=== PATIENT | female | born 1970 | race Caucasian/White ===

== ENCOUNTER → 2022-11-14 | Outpatient (CLI) | payer BC ==
--- NOTE | 2022-11-14 07:58 | MM ---
Reason for Exam: Clinical finding. Last mammogram was performed 8 year(s) and 1 month(s) ago. Indicated Problems: Lump or thickening of the left side for 1 Month(s). Patient History: Menarche at age 14. First Full-Term at age 19. 10/27/2014, Benign Core Biopsy on the left side. Maternal aunt had breast cancer. Risk Values: Yun 5 year model risk: 0.8%. NCI Lifetime model risk: 6.8%. Prior Study Comparison: Screening Mammogram, [facility]. 10/05/2014 Bilateral Diagnostic Mammogram, [facility]. 10/05/2014 Bilateral Diagnostic Ultrasound, [facility]. 10/27/2014 Left Diagnostic Mammogram, [facility]. Tissue Density: The breast tissue is extremely dense which could obscure a lesion on mammography. Findings: Analyzed By CAD. No discrete abnormality at the site of clinical concern. Scattered benign calcifications noted. Overall Assessment: Incomplete: need additional imaging evaluation, BI-RAD 0 Management: Diagnostic Breast Ultrasound of the left breast. . Results were given to the patient verbally at the time of exam. Patient should continue monthly self-breast exams. A clinical breast exam by your physician is recommended on an annual basis. This exam should not preclude additional follow-up of suspicious palpable abnormalities. Note on Yun scores and lifetime risk: 1. A Yun score greater than 3% is considered moderate risk. If this is the case, consider specialist referral to assess eligibility for a risk reducing agent. 2. If overall lifetime risk for the development of breast cancer is 20% or higher, the patient may qualify for future screening with alternating mammogram and breast MRI. Electronically signed and approved by: Reji Deng M.D. Radiologis
--- NOTE | 2022-11-14 08:41 | USB ---
Reason for Exam: Clinical finding. Patient History: Menarche at age 14. First Full-Term at age 19. 10/27/2014, Benign Core Biopsy on the left side. Maternal aunt had breast cancer. Risk Values: Yun 5 year model risk: 0.8%. NCI Lifetime model risk: 6.8%. Technique: Method: Targeted. Prior Study Comparison: Screening Mammogram, [facility]. 10/05/2014 Bilateral Diagnostic Mammogram, [facility]. 10/27/2014 Left Diagnostic Mammogram, [facility]. Findings: The area of palpable concern of the left breast, the axilla of the left breast and the retroareolar of the left breast were scanned. No solid or cystic masses are identified.. Manage palpable abnormality clinically. Overall Assessment: Negative, BI-RAD 1 Management: Screening Mammogram of both breasts in 1 year. A clinical breast exam by your physician is recommended on an annual basis and results should be correlated with mammographic findings. This exam should not preclude additional follow-up of suspicious palpable abnormalities. Results were given to the patient verbally at the time of exam. Electronically signed and approved by: Reji Deng M.D. Radiologis
--- NOTE | 2022-11-14 09:48 | BD ---
EXAMINATION TYPE: Axial Bone Density DATE OF EXAM: 11/14/2022 CLINICAL HISTORY: 52 years old Female. ICD-10 CODE: N951 POST CYRUS SYMPTOMS Height: 66 Weight: 136 FRAX RISK QUESTIONS: Family History (Parent hip fracture): no History of Fracture in Adulthood: no Secondary Osteoporosis: no Rheumatoid Arthritis: no Current Tobacco Use: yes RISK FACTORS HISTORY OF: Surgery to Spine: yes, stimulater in When: 2020 Family History of Osteoporosis: no Active: yes Diet low in dairy products/other sources of calcium: yes Postmenopausal woman: yes Lost more than 2 inches in height since high school: no Frequent falls: no MEDICATIONS: Additional Medications: yes anxiety, pain meds EXAM MEASUREMENTS: Bone mineral densitometry was performed using the [employer] System. Bone mineral density as measured about the Lumbar spine is: ----- L1-L4(G/cm2): 1.033 T Score Values are as follows: ----- L1: -1.9 ----- L2: -0.6 ----- L3: -1.4 ----- L4: -1.3 ----- L1-L4: -1.2 Z Score Values are as follows: ----- L1: -1.2 ----- L2: 0.1 ----- L3: -0.7 ----- L4: -0.5 ----- L1-L4: -0.5 Bone mineral density baseline Bone mineral density about the R hip (g/cm2): 0.783 Bone mineral density about the L hip (g/cm2): 0.722 T Score values are as follows: -----R Neck: -1.7 -----L Neck: -2.4 -----R Total: -1.8 -----L Total: -2.3 Z Score values are as follows: -----R Neck: -0.8 -----L Neck: -1.5 -----R Total: -1.2 -----L Total: -1.6 Bone mineral density baseline FRAX%s: The graph provided illustrates a 8.0% chance for a major osteoporotic fx and a 2.5% chance fo r the hips probability for fx in 10 years time. IMPRESSION: Osteopenia (T Score between -2.5 and -1). There is slightly increased risk of fracture and the patient may be considered for treatment. Re-Screen 2-5 years. NOTE: T-SCORE=SD OF THE YOUNG ADULT MEAN.
== END | disposition home or self-care (01) ==
LOC: RADMAMWWP 07:28
PROVIDERS: ATTEND Obstetrics & Gynecology
DX: N63.0 Unspecified lump in unspecified breast (principal); M85.89 Other specified disorders of bone density and structure, multiple sites; Z78.0 Asymptomatic menopausal state; Z80.3 Family history of malignant neoplasm of breast
CPT/HCPCS: 77062; 77066; 77080

== ENCOUNTER 2023-09-19 16:00 | Inpatient (IN) | payer BC ==
--- NOTE | 2023-09-19 16:12 | ED ---
Abdominal Pain HPI - General Source: patient, RN notes reviewed Mode of arrival: wheelchair Limitations: no limitations <Cheryle Chau - Last Filed: 09/19/23 16:11> <Leland Tolentino - Last Filed: 09/19/23 23:40> <Alida Kim - Last Filed: 09/20/23 00:51> - General Chief Complaint: Abdominal Pain Stated Complaint: abd pain Time Seen by Provider: 09/19/23 16:11 - History of Present Illness Initial Comments: Quick note: 53-year-old female presented to the ER with a chief complaint of left-sided body pain. Patient has a history of kidney stones. She reports pain started around 1 AM. She is endorsing nausea and vomiting. (Cheryle Chau) 53-year-old female with history of kidney stones and cholecystectomy presenting to the ER with left flank pain x 1 day. Reports pain began suddenly at 1 AM this morning and is sharp and radiates from the left flank around to the left sided abdomen. Patient has been vomiting due to nausea. Patient reports that she had a left-sided kidney stone that was 4 mm and reports it "got stuck" and they had to break it up. Previous scans revealed she had another kidney stone on left side. Admits subjective fever and chills, denies dysuria, urinary frequency, urinary urgency. (Alida Kim) - Related Data Home Medications Medication Instructions Recorded Confirmed HYDROcodone/APAP 10-325MG [[place] 1 tab PO Q4HR PRN 05/22/15 05/22/15 10-325] Allergies Allergy/AdvReac Type Severity Reaction Status Date / Time lansoprazole [From Prevacid] Allergy Rash/Hives Verified 09/19/23 16:05 povidone-iodine Allergy Rash/Hives Verified 09/19/23 16:05 [From Betadine] soap [From Betadine] Allergy Rash/Hives Verified 09/19/23 16:05 Sulfa (Sulfonamide Allergy Rash/Hives Verified 09/19/23 16:05 Antibiotics) Review of Systems ROS Other: All systems not noted in ROS Statement are negative. <Cheryle Chau - Last Filed: 09/19/23 16:11> ROS Other: All systems not noted in ROS Statement are negative. <Leland Tolentino - Last Filed: 09/19/23 23:40> ROS Other: All systems not noted in ROS Statement are negative. <KimAlida - Last Filed: 09/20/23 00:51> ROS Statement: Those systems with pertinent positive or pertinent negative responses have been documented in the HPI. Past Medical History Additional Past Medical History / Comment(s): BACK PAIN History of Any Multi-Drug Resistant Organisms: None Reported Past Surgical History: Back Surgery, Tubal Ligation Additional Past Surgical History / Comment(s): LEFT FOOT SURGERY Past Psychological History: No Psychological Hx Reported Past Alcohol Use History: None Reported Past Drug Use History: None Reported <Cheryle Chau - Last Filed: 09/19/23 16:11> General Exam Limitations: no limitations <Cheryle Chau - Last Filed: 09/19/23 16:11> General appearance: alert, other (Patient doubled over in pain during examination) Head exam: Present: atraumatic, normocephalic, normal inspection Neck exam: Present: normal inspection. Absent: tenderness, meningismus, lymphadenopathy Respiratory exam: Present: normal lung sounds bilaterally. Absent: respiratory distress, wheezes, rales, rhonchi, stridor Cardiovascular Exam: Present: regular rate, normal rhythm, normal heart sounds. Absent: systolic murmur, diastolic murmur, rubs, gallop, clicks GI/Abdominal exam: Present: soft, tenderness (Moderate left lower quadrant tenderness), normal bowel sounds. Absent: distended, guarding, rebound, rigid Extremities exam: Present: normal inspection, full ROM, normal capillary refill. Absent: tenderness, pedal edema, joint swelling, calf tenderness Back exam: Present: normal inspection, CVA tenderness (L). Absent: CVA tenderness (R) Neurological exam: Present: alert, oriented X3, CN II-XII intact Psychiatric exam: Present: normal affect, anxious <Alida Kim - Last Filed: 09/20/23 00:51> - General Exam Comments Initial Comments: Visual Physical Exam Vital signs reviewed General: Well-appearing, nontoxic, no acute distress. Head: Normocephalic, atraumatic Eyes: PERRLA, EOMI ENT: Airway patent Chest: Nonlabored breathing Skin: No visual rash, normal skin tone Neuro: Alert and oriented 3 Musculoskeletal: No gross abnormalities (Cheryle Chau) Course Vital Signs 09/19/23 16:02 Temperature 98.0 F Pulse Rate 108 H Respiratory 16 Rate Blood Pressure 95/67 O2 Sat by Pulse 100 Oximetry Medical Decision Making <Cheryle Chau - Last Filed: 09/19/23 16:11> - Lab Data Result diagrams: 09/19/23 20:30 09/19/23 16:28 <Leland Tolentino - Last Filed: 09/19/23 23:40> - Lab Data Result diagrams: 09/19/23 20:30 09/19/23 16:28 <Alida Kim - Last Filed: 09/20/23 00:51> - Medical Decision Making I performed the quick note portion of this chart. Electronically signed by Cheryle Chau PA-C (Cheryle Chau) Was pt. sent in by a medical professional or institution (ROEL Graham, FORGE UTILITY WORKER, urgent care, hospital, or correction...) When possible be specific @ -No Did you speak to anyone other than the patient for history (EMS, parent, family, police, friend...)? What history was obtained from this source @ -No Did you review nursing and triage notes (agree or disagree)? Why? @ -I reviewed and agree with nursing and triage notes Were old charts reviewed (outside hosp., previous admission, EMS record, old EKG, old radiological studies, urgent care reports/EKG's, correction records)? Report findings @ -No old charts were reviewed Differential Diagnosis (chest pain, altered mental status, abdominal pain women, abdominal pain men, vaginal bleeding, weakness, fever, dyspnea, syncope, headache, dizziness, GI bleed, back pain, seizure, CVA, palpatations, mental health, musculoskeletal)? @ -Differential Abdominal Pain Women: Appendicitis, Cholecystitis, diverticulosis, ischemic bowel, pancreatitis, hepatitis, UTI, gastroenteritis, AAA, incarcerated hernia, bowel obstruction, constipation, inflammatory bowel, hepatitis, peptic ulcer disease, splenic infarction, perforated viscus, vulvitis, ovarian torsion, PID, kidney stone, placenta abruption, this is not meant to be an all-inclusive list EKG interpreted by me (3pts min.). @ -None X-rays interpreted by me (1pt min.). @ -None done CT interpreted by me (1pt min.). @ -None done U/S interpreted by me (1pt. min.). @ -None done What testing was considered but not performed or refused? (CT, X-rays, U/S, labs)? Why? @ -None What meds were considered but not given or refused? Why? @ -None Did you discuss the management of the patient with other professionals (professionals i.e. DrSneha, PA, FORGE UTILITY WORKER, lab, RT, psych nurse, health and social care teacher, cellar worker, teacher, disabilities services officer, case making machine operator)? Give summary @ -Case discussed with Dr. Garza who decides to take patient to the OR tonight. Case also discussed with Dr. Hinojosa who agrees to accept admission as blood pressure has stabilized to 114/70. Dr. Lopez from infectious disease also consulted. Was smoking cessation discussed for >3mins.? @ -No Was critical care preformed (if so, how long)? @ -Yes, 45 minutes Were there social determinants of health that impacted care today? How? (Homelessness, low income, unemployed, alcoholism, drug addiction, transportation, low edu. Level, literacy, decrease access to med. care, prison, rehab)? @ -No Was there de-escalation of care discussed even if they declined (Discuss DNR or withdrawal of care, Hospice)? DNR status @ -No What co-morbidities impacted this encounter? (DM, HTN, Smoking, COPD, CAD, Cancer, CVA, ARF, Chemo, Hep., AIDS, mental health diagnosis, sleep apnea, morbid obesity)? @ -None Was patient admitted / discharged? Hospital course, mention meds given and route, prescriptions, significant lab abnormalities, going to OR and other pertinent info. @ -Patient was admitted. Patient was seen and evaluated for left flank pain x 1 day with vomiting. Patient has history of kidney stones. Patient is tachycardic at 108 bpm upon initial evaluation, however is afebrile. BP is 90/67. Patient has significant left lower quadrant tenderness to palpation. Patient is given Dilaudid, Zofran, and IV fluids which improved symptoms. Lab work remarkable for lactic acid of 2.3, white blood cell count of 23.3. Urine remarkable for large amount of white blood cells, red blood cells, and positive nitrites. Patient met sepsis criteria at 8:44 p.m., and blood cultures and antibiotics began at 10:52 PM. IV Rocephin started with aggressive IV fluid hydration. CT revealed severe left-sided perinephritic edema with moderate hydronephrosis secondary to 3 to 4 mm distal left ureteral calculus. N.p.o. diet ordered. Aggressive IV hydration continued throughout time in ER. Upon reevaluation, patient is tachycardic at 145 bpm and patient is febrile at 101.1. Tylenol given for fever.Case discussed with Dr. Garza [facility] Case was discussed with Dr. Hinojosa who agrees to accept admission this time as blood pressure stabilized to 114/78. Dr. Lopez from infectious disease also consulted. Case discussed with Dr. Tolentino and Dr. John. Undiagnosed new problem with uncertain prognosis? @ -No Drug Therapy requiring intensive monitoring for toxicity (Heparin, Nitro, Insulin, Cardizem)? @ -No Were any procedures done? @ -No Diagnosis/symptom? @ -Left nephrolithiasis, sepsis Acute, or Chronic, or Acute on Chronic? @ -Acute Uncomplicated (without systemic symptoms) or Complicated (systemic symptoms)? @ -Complicated Side effects of treatment? @ -No Exacerbation, Progression, or Severe Exacerbation? @ -No Poses a threat to life or bodily function? How? (Chest pain, USA, ID, pneumonia, PE, COPD, DKA, ARF, appy, cholecystitis, CVA, Diverticulitis, Homicidal, Suicidal, threat to staff... and all critical care pts) @ -Yes, sepsis (Alida Kim) - Lab Data Lab Results 09/19/23 09/19/23 09/19/23 Range/Units 16:28 16:32 16:58 WBC (3.8-10.6) k/uL RBC (3.80-5.40) m/uL Hgb (11.4-16.0) gm/dL Hct (34.0-46.0) % MCV (80.0-100.0) fL MCH (25.0-35.0) pg MCHC (31.0-37.0) g/dL RDW (11.5-15.5) % Plt Count (150-450) k/uL MPV Neutrophils % (Manual) % Band Neuts % (Manual) % Lymphocytes % (Manual) % Monocytes % (Manual) % Neutrophils # (Manual) (1.3-7.7) k/uL Lymphocytes # (Manual) (1.0-4.8) k/uL Monocytes # (Manual) (0-1.0) k/uL Nucleated RBCs (0-0) /100 WBC Manual Slide Review RBC Morphology Sodium 137 (137-145) mmol/L Potassium 3.9 (3.5-5.1) mmol/L Chloride 106 (98-107) mmol/L Carbon Dioxide 21 L (22-30) mmol/L Anion Gap 10 mmol/L BUN 22 H (7-17) mg/dL Creatinine 1.28 H (0.52-1.04) mg/dL Est GFR (CKD-EPI)AfAm 55 (>60 ml/min/1.73 sqM) Est GFR (CKD-EPI)NonAf 48 (>60 ml/min/1.73 sqM) Glucose 109 H (74-99) mg/dL Lactic Ac Sepsis Rflx Y Plasma Lactic Acid Amarjit 2.3 H* (0.7-2.0) mmol/L Calcium 9.0 (8.4-10.2) mg/dL Total Bilirubin 1.2 (0.2-1.3) mg/dL AST 36 (14-36) U/L ALT 17 (4-34) U/L Alkaline Phosphatase 75 (38-126) U/L Total Protein 7.3 (6.3-8.2) g/dL Albumin 4.4 (3.5-5.0) g/dL Amylase 48 (30-110) U/L Lipase 55 (23-300) U/L Urine Color Urine Appearance (Clear) Urine pH (5.0-8.0) Ur Specific [place] (1.001-1.035) Urine Protein (Negative) Urine Glucose (UA) (Negative) Urine Ketones (Negative) Urine Blood (Negative) Urine Nitrite (Negative) Urine Bilirubin (Negative) Urine Urobilinogen (<2.0) mg/dL Ur Leukocyte Esterase (Negative) Urine RBC (0-5) /hpf Urine WBC (0-5) /hpf Urine WBC Clumps (None) /hpf Ur Squamous Epith Cells (0-4) /hpf Amorphous Sediment (None) /hpf Urine Bacteria (None) /hpf Hyaline Casts (0-2) /lpf Urine Mucus (None) /hpf 09/19/23 09/19/23 09/19/23 Range/Units 20:30 20:30 21:50 WBC 23.3 H (3.8-10.6) k/uL RBC 4.14 (3.80-5.40) m/uL Hgb 13.7 (11.4-16.0) gm/dL Hct 39.9 (34.0-46.0) % MCV 96.5 (80.0-100.0) fL MCH 33.2 (25.0-35.0) pg MCHC 34.4 (31.0-37.0) g/dL RDW 12.5 (11.5-15.5) % Plt Count 138 L (150-450) k/uL MPV 8.2 Neutrophils % (Manual) 71 % Band Neuts % (Manual) 20 % Lymphocytes % (Manual) 4 % Monocytes % (Manual) 5 % Neutrophils # (Manual) 21.20 H (1.3-7.7) k/uL Lymphocytes # (Manual) 0.93 L (1.0-4.8) k/uL Monocytes # (Manual) 1.17 H (0-1.0) k/uL Nucleated RBCs 0 (0-0) /100 WBC Manual Slide Review Performed RBC Morphology Normal Sodium (137-145) mmol/L Potassium (3.5-5.1) mmol/L Chloride (98-107) mmol/L Carbon Dioxide (22-30) mmol/L Anion Gap mmol/L BUN (7-17) mg/dL Creatinine (0.52-1.04) mg/dL Est GFR (CKD-EPI)AfAm (>60 ml/min/1.73 sqM) Est GFR (CKD-EPI)NonAf (>60 ml/min/1.73 sqM) Glucose (74-99) mg/dL Lactic Ac Sepsis Rflx Plasma Lactic Acid Amarjit 1.9 (0.7-2.0) mmol/L Calcium (8.4-10.2) mg/dL Total Bilirubin (0.2-1.3) mg/dL AST (14-36) U/L ALT (4-34) U/L Alkaline Phosphatase (38-126) U/L Total Protein (6.3-8.2) g/dL Albumin (3.5-5.0) g/dL Amylase (30-110) U/L Lipase (23-300) U/L Urine Color Yellow Urine Appearance Cloudy H (Clear) Urine pH 5.5 (5.0-8.0) Ur Specific [place] 1.024 (1.001-1.035) Urine Protein 1+ H (Negative) Urine Glucose (UA) Negative (Negative) Urine Ketones Negative (Negative) Urine Blood Moderate H (Negative) Urine Nitrite Positive H (Negative) Urine Bilirubin Negative (Negative) Urine Urobilinogen <2.0 (<2.0) mg/dL Ur Leukocyte Esterase Large H (Negative) Urine RBC 57 H (0-5) /hpf Urine WBC >182 H (0-5) /hpf Urine WBC Clumps Many H (None) /hpf Ur Squamous Epith Cells 7 H (0-4) /hpf Amorphous Sediment Occasional H (None) /hpf Urine Bacteria Many H (None) /hpf Hyaline Casts 19 H (0-2) /lpf Urine Mucus Few H (None) /hpf Disposition <Cheryle Chau - Last Filed: 09/19/23 16:11> <Leland Tolentino - Last Filed: 09/19/23 23:40> Time of Disposition: 00:41 <Alida Kim - Last Filed: 09/20/23 00:51> Clinical Impression: Left nephrolithiasis, Sepsis Disposition: ADMITTED IP TO THIS [facility] Condition: Serious Referrals: Nonstaff,Physician [Primary Care Provider] - 1-2 days
[2023-09-19 16:51] LABS: ALT 17 U/L (4-34); AST 36 U/L (14-36); African American GFR (CKD) 55 (>60 ml/min/1.73 sqM); Albumin 4.4 g/dL (3.5-5.0); Alkaline Phosphatase 75 U/L (38-126); Amylase 48 U/L (30-110); Anion Gap 10 mmol/L; Blood Urea Nitrogen 22 mg/dL (7-17); Carbon Dioxide 21 mmol/L (22-30); Chloride 106 mmol/L (98-107); Glucose 109 mg/dL (74-99); Lipase 55 U/L (23-300); Non-African American GFR(CKD) 48 (>60 ml/min/1.73 sqM); Sodium 137 mmol/L (137-145); Total Bilirubin 1.2 mg/dL (0.2-1.3); Total Protein 7.3 g/dL (6.3-8.2)
[2023-09-19 16:57] LABS: Potassium 3.9 mmol/L (3.5-5.1)
[2023-09-19] MEDS: HYDROmorphone 0.5 MG/0.5 ML SYRINGE IVP STA (20:40)
[2023-09-19] MEDS: SODIUM CHLORIDE 0.9% 1,000 ML IV STA ×2 (20:41→23:29)
[2023-09-19] MEDS: ONDANSETRON 4 MG/2 ML VIAL IVP STA (20:41)
[2023-09-19 21:12] LABS: HCT 39.9 % (34.0-46.0); HGB 13.7 gm/dL (11.4-16.0); MCH 33.2 pg (25.0-35.0); MCHC 34.4 g/dL (31.0-37.0); MCV 96.5 fL (80.0-100.0); Mean Platelet Volume 8.2; Platelet Count 138 k/uL (150-450); RBC 4.14 m/uL (3.80-5.40); RDW 12.5 % (11.5-15.5); WBC 23.3 k/uL (3.8-10.6)
[2023-09-19 22:07] LABS: Band Neutrophils % 20 %; Lymphocytes # (M) 0.93 k/uL (1.0-4.8); Monocytes # (M) 1.17 k/uL (0-1.0); Neutrophils % (M) 71 %; Nucleated Red Blood Cells 0 /100 WBC (0-0); RBC Morphology Normal; Total Cells Counted 100
[2023-09-19 22:19] LABS: Amorphous Sediment,Urine Occasional /hpf; Appearance,Urine Cloudy (Clear); Bacteria,Urine Many /hpf; Bilirubin,Urine Negative (Negative); Blood,Urine Moderate (Negative); Color,Urine Yellow; Glucose,Urine (UA) Negative (Negative); Hyaline Casts,Urine 19 /lpf (0-2); Ketones,Urine Negative (Negative); Leukocyte Esterase,Urine Large (Negative); Mucus,Urine Few /hpf; Nitrite,Urine Positive (Negative); PH, Urine 5.5 (5.0-8.0); Protein,Urine 1+ (Negative); RBC,Urine 57 /hpf (0-5); Specific Gravity,Urine 1.024 (1.001-1.035); Squamous Epithelial Cell,Urine 7 /hpf (0-4); Urobilinogen,Urine <2.0 mg/dL (<2.0); WBC,Urine >182 /hpf (0-5)
--- NOTE | 2023-09-19 23:06 | CT ---
EXAMINATION TYPE: CT abdomen pelvis wo con DATE OF EXAM: 09/19/2023 COMPARISON: None HISTORY: Bilateral flank pain CT DLP: 402.5 mGycm Automated exposure control for dose reduction was used. TECHNIQUE: Helical acquisition of images was performed from the lung bases through the pelvis. FINDINGS: Dr. Charlie Mathews did not cases for over 3 hours in this case is submitted to me at the [facility] L1 p.m. 09/19/2023. LUNG BASES: No significant abnormality is appreciated. LIVER/GB: Liver is slightly low in attenuation. Correlate for underlying hepatocellular disease or he patic steatosis. Hyperdensity seen in the region of the gallbladder fossa which could be related to p rior surgery. Correlate for prior cholecystectomy. PANCREAS: No significant abnormality is seen. SPLEEN: No significant abnormality is seen. ADRENALS: No significant abnormality is seen. KIDNEYS: And there is perinephric edema on the left with moderate hydronephrosis secondary to a dista l left ureteral calculus reference image 117 series 201 measuring 3 to 4 mm a few centimeters proxima l to the UVJ. Right ureter is of normal caliber with no evidence of calculi within the kidneys bilaterally. FREE AIR: No free air is visualized RETROPERITONEAL ADENOPATHY: None visualized REPRODUCTIVE ORGANS: No significant abnormality is seen URINARY BLADDER: No significant abnormality is seen. PELVIC ADENOPATHY: None visualized. OSSEOUS STRUCTURES: Degenerative changes of the spine. BOWEL: The bowel gas pattern nonspecific. Appendix normal. OTHER: There is a metallic stimulator device overlying the soft tissues of posteriorly on the right. Leads are seen extending into the spinal canal. Bladder is decompressed. Perinephric edema noted on t he left with a small amount of fluid in the paracolic gutter and along the retroperitoneum. IMPRESSION: 1. Severe left-sided perinephric edema with moderate hydronephrosis secondary to a 3 to 4 mm distal l eft ureteral calculus.
[2023-09-19] MEDS: ACETAMINOPHEN TAB 325 MG TAB PO STA (23:24)
[2023-09-19] MEDS: METOCLOPRAMIDE 5 MG/ML 2 ML VIAL IVP STA (23:43)
[2023-09-20] MEDS ORDERED: NALOXONE 0.4 MG/ML 1 ML VIAL IV PRN (00:20)
--- NOTE | 2023-09-20 00:48 | P.GSCN ---
History of Present Illness Consult date: 09/20/23 Reason for Consult: Left ureteral calculus, UTI Requesting physician: Abdi E Sheet History of present illness: The patient is a 53-year-old white female with a history of urolithiasis, for which she previously underwent surgery on 1 occasion. At approximately 1 AM on September 18, she began to experience left flank pain radiating to the left abdomen, associated with nausea, vomiting, fever, and chills. She presented to the ER and was found to have leukocytosis and an elevated serum lactic acid level. Urinalysis was consistent with infection. CT scan shows evidence of left hydronephrosis due to a left distal ureteral calculus. Review of Systems - Constitutional Reports chills, Reports fever - Gastrointestinal Reports nausea, Reports vomiting - Genitourinary Genitourinary: Reports flank pain, Reports kidney stones, Denies dysuria, Denies hematuria Past Medical History Additional Past Medical History / Comment(s): BACK PAIN History of Any Multi-Drug Resistant Organisms: None Reported Past Surgical History: Back Surgery, Tubal Ligation Additional Past Surgical History / Comment(s): LEFT FOOT SURGERY Past Psychological History: No Psychological Hx Reported Past Alcohol Use History: None Reported Past Drug Use History: None Reported Medications and Allergies Home Medications Medication Instructions Recorded Confirmed Type HYDROcodone/APAP 10-325MG [[place] 1 tab PO Q4HR PRN 05/22/15 05/22/15 History 10-325] Allergies Allergy/AdvReac Type Severity Reaction Status Date / Time lansoprazole [From Prevacid] Allergy Rash/Hives Verified 09/19/23 16:05 povidone-iodine Allergy Rash/Hives Verified 09/19/23 16:05 [From Betadine] soap [From Betadine] Allergy Rash/Hives Verified 09/19/23 16:05 Sulfa (Sulfonamide Allergy Rash/Hives Verified 09/19/23 16:05 Antibiotics) Surgical - Exam Vital Signs Temp Pulse Resp BP Pulse Ox 98.0 F 108 H 16 95/67 100 09/19/23 16:02 09/19/23 16:02 09/19/23 16:02 09/19/23 16:02 09/19/23 16:02 - General well developed, well nourished, moderate distress - Respiratory normal respiratory effort - Abdomen Abdomen: soft, tender (Left lower quadrant tenderness), no masses, no guarding, no rebound, no distended - Psychiatric oriented to time, oriented to person, oriented to place, speech is normal, memory intact Results - Labs 09/19/23 20:30 09/19/23 16:28 Abnormal Lab Results - Last 24 Hours (Table) 09/19/23 09/19/23 09/19/23 Range/Units 16:28 16:32 20:30 WBC 23.3 H (3.8-10.6) k/uL Plt Count 138 L (150-450) k/uL Neutrophils # (Manual) 21.20 H (1.3-7.7) k/uL Lymphocytes # (Manual) 0.93 L (1.0-4.8) k/uL Monocytes # (Manual) 1.17 H (0-1.0) k/uL Carbon Dioxide 21 L (22-30) mmol/L BUN 22 H (7-17) mg/dL Creatinine 1.28 H (0.52-1.04) mg/dL Glucose 109 H (74-99) mg/dL Plasma Lactic Acid Amarjit 2.3 H* (0.7-2.0) mmol/L Urine Appearance (Clear) Urine Protein (Negative) Urine Blood (Negative) Urine Nitrite (Negative) Ur Leukocyte Esterase (Negative) Urine RBC (0-5) /hpf Urine WBC (0-5) /hpf Urine WBC Clumps (None) /hpf Ur Squamous Epith Cells (0-4) /hpf Amorphous Sediment (None) /hpf Urine Bacteria (None) /hpf Hyaline Casts (0-2) /lpf Urine Mucus (None) /hpf 09/19/23 Range/Units 21:50 WBC (3.8-10.6) k/uL Plt Count (150-450) k/uL Neutrophils # (Manual) (1.3-7.7) k/uL Lymphocytes # (Manual) (1.0-4.8) k/uL Monocytes # (Manual) (0-1.0) k/uL Carbon Dioxide (22-30) mmol/L BUN (7-17) mg/dL Creatinine (0.52-1.04) mg/dL Glucose (74-99) mg/dL Plasma Lactic Acid Amarjit (0.7-2.0) mmol/L Urine Appearance Cloudy H (Clear) Urine Protein 1+ H (Negative) Urine Blood Moderate H (Negative) Urine Nitrite Positive H (Negative) Ur Leukocyte Esterase Large H (Negative) Urine RBC 57 H (0-5) /hpf Urine WBC >182 H (0-5) /hpf Urine WBC Clumps Many H (None) /hpf Ur Squamous Epith Cells 7 H (0-4) /hpf Amorphous Sediment Occasional H (None) /hpf Urine Bacteria Many H (None) /hpf Hyaline Casts 19 H (0-2) /lpf Urine Mucus Few H (None) /hpf Diabetes panel 09/19/23 Range/Units 16:28 Sodium 137 (137-145) mmol/L Potassium 3.9 (3.5-5.1) mmol/L Chloride 106 (98-107) mmol/L Carbon Dioxide 21 L (22-30) mmol/L BUN 22 H (7-17) mg/dL Creatinine 1.28 H (0.52-1.04) mg/dL Glucose 109 H (74-99) mg/dL Calcium 9.0 (8.4-10.2) mg/dL AST 36 (14-36) U/L ALT 17 (4-34) U/L Alkaline Phosphatase 75 (38-126) U/L Total Protein 7.3 (6.3-8.2) g/dL Albumin 4.4 (3.5-5.0) g/dL Calcium panel 09/19/23 Range/Units 16:28 Calcium 9.0 (8.4-10.2) mg/dL Albumin 4.4 (3.5-5.0) g/dL Pituitary panel 09/19/23 Range/Units 16:28 Sodium 137 (137-145) mmol/L Potassium 3.9 (3.5-5.1) mmol/L Chloride 106 (98-107) mmol/L Carbon Dioxide 21 L (22-30) mmol/L BUN 22 H (7-17) mg/dL Creatinine 1.28 H (0.52-1.04) mg/dL Glucose 109 H (74-99) mg/dL Calcium 9.0 (8.4-10.2) mg/dL Adrenal panel 09/19/23 Range/Units 16:28 Sodium 137 (137-145) mmol/L Potassium 3.9 (3.5-5.1) mmol/L Chloride 106 (98-107) mmol/L Carbon Dioxide 21 L (22-30) mmol/L BUN 22 H (7-17) mg/dL Creatinine 1.28 H (0.52-1.04) mg/dL Glucose 109 H (74-99) mg/dL Calcium 9.0 (8.4-10.2) mg/dL Total Bilirubin 1.2 (0.2-1.3) mg/dL AST 36 (14-36) U/L ALT 17 (4-34) U/L Alkaline Phosphatase 75 (38-126) U/L Total Protein 7.3 (6.3-8.2) g/dL Albumin 4.4 (3.5-5.0) g/dL - Imaging CT scan - abdomen: report reviewed, image reviewed Assessment and Plan (1) Acute pyelonephritis Current Visit: Yes Status: Acute Code(s): N10 - ACUTE PYELONEPHRITIS SNOMED Code(s): 68896920 (2) Hydronephrosis with renal and ureteral calculous obstruction Current Visit: Yes Status: Acute Code(s): N13.2 - HYDRONEPHROSIS WITH RENAL AND URETERAL CALCULOUS OBSTRUCTION SNOMED Code(s): 307774120 Plan: The patient's clinical picture is consistent with UTI and possible sepsis, complicated by an obstructing 3 to 4 mm left distal ureteral calculus. She has received ceftriaxone. I have made arrangements for the patient to undergo emergent cystoscopy with left ureteral stent insertion. The rationale for this was reviewed in detail with the patient. She was made aware of potential risks, which include anesthesia, infection, ureteral injury, and inability to successfully place a stent. The patient intends to return to [place] in several days. I explained to her that it will be necessary for her to see a urologist there, who will confirm that her infection has resolved and then perform cystoscopy, left ureteral stent removal, and ureteroscopic removal of the left distal ureteral calculus. Time with Patient: Greater than 30
[2023-09-20] MEDS: IOPAMIDOL-370 100ML BTL MISCELLANE ONE ×2 (00:59→01:28)
[2023-09-20] MEDS: SODIUM CHLORIDE 0.9% 1,000 ML IV STA (01:03)
[2023-09-20] MEDS ORDERED: fentaNYL (PF) 50 MCG/ML 2 ML AMP ONE (01:08)
[2023-09-20] MEDS ORDERED: ONDANSETRON 4 MG/2 ML VIAL ONE (01:08)
[2023-09-20] MEDS ORDERED: ACETAMINOPHEN IV (For NPO) 1,000 MG/100 ML VIAL ONE (01:08)
[2023-09-20] MEDS ORDERED: SUCCINYLCHOLINE CHLORIDE 200 MG/10 ML VIAL IV ONE (01:08)
[2023-09-20] MEDS ORDERED: MIDAZOLAM 2 MG/2 ML VIAL ONE (01:08)
[2023-09-20] MEDS ORDERED: PROPOFOL 10 MG/ML 20 ML VIAL IV ONE (01:08)
[2023-09-20] MEDS ORDERED: DEXAMETHASONE SOD PHOSPHATE 4 MG/ML 1 ML VIAL ONE (01:08)
[2023-09-20] MEDS: IV FLUID CONTINUATION 1,000 ML IV ONE (01:11)
--- NOTE | 2023-09-20 01:36 | P.OP ---
Date of Procedure: 09/20/23 Preoperative Diagnosis: Left hydronephrosis secondary to left distal ureteral calculus Postoperative Diagnosis: Same Procedure(s) Performed: Cystoscopy, left retrograde pyelogram, left ureteral stent insertion Anesthesia: TAL Surgeon: Shai Garza Estimated Blood Loss (ml): 0 IV fluids (ml): 200 Pathology: none sent Condition: stable Disposition: PACU Indications for Procedure: The patient is a 53-year-old white female with a history of urolithiasis, for which she previously underwent surgery on 1 occasion. At approximately 1 AM on September 18, she began to experience left flank pain radiating to the left abdomen, associated with nausea, vomiting, fever, and chills. She presented to the ER and was found to have leukocytosis and an elevated serum lactic acid level. Urinalysis was consistent with infection. CT scan shows evidence of left hydronephrosis due to a 3-4 mm left distal ureteral calculus, and she now comes for stent insertion. Operative Findings: Left distal ureteral calculus. Successful left ureteral stent placement. Description of Procedure: The patient was taken to the operating room and placed in the dorsolithotomy position, with legs supported in Kofi stirrups. The external genitalia was prepped and draped sterilely. The 30 lens was used to introduce the 22-E[place]ian Stortz cystoscopic sheath through the urethra and into the bladder under direct vision. Upon entering the bladder, the urine was noted to be cloudy. The bladder was drained. A urine specimen was collected and sent for culture and sensitivity. After irrigating the bladder, the bladder was examined in its entirety. Both ureteral orifices were of normal anatomic location and configuration. No tumors or foreign bodies were seen. There was evidence of diffuse patchy erythema consistent with cystitis. Using a 10 Estonian cone-tip catheter, a left retrograde pyelogram was performed. This confirmed the presence of a left distal ureteral calculus measuring approximately 4 mm in size. The calculus was mobile and thus not impacted. A 0.035 inch Glidewire was passed through the cystoscope. The left ureteral orifice was cannulated, and the Glidewire was slowly advanced up to the renal pelvis. A 24 cm, 6-E[place]ian double-J ureteral stent was placed over the wire. Proper stent positioning was verified fluoroscopically and endoscopically. No significant drainage through the stent was noted upon stent placement. The bladder was emptied and the cystoscope removed. The patient tolerated the procedure well and was taken to the recovery room in stable condition.
[2023-09-20] MEDS: SODIUM CHLORIDE 0.9% 500 ML 500 ML IV ONE (02:58)
[2023-09-20] MEDS: SODIUM CHLORIDE 0.9% 1,000 ML IV SCH (02:59)
[2023-09-20] MEDS: SODIUM CHLORIDE 0.9% 1,000 ML IV ONE ×2 (04:22→05:13)
--- NOTE | 2023-09-20 07:40 | FL ---
Fluoroscopy for cystoscopy/stent placement. HISTORY: Left ureteral stent placed for left hydronephrosis and ureteral calculus. FINDINGS: 15 seconds of fluoroscopy was provided for the placement of the left ureteral stent. No spot films we re limited.
[2023-09-20] MEDS: HEPARIN SODIUM,PORCINE 5,000 UNIT/ML 1 ML VIAL SQ SCH (08:19)
[2023-09-20] MEDS: FAMOTIDINE 20 MG/2 ML VIAL IV SCH (08:19)
[2023-09-20] MEDS: ACETAMINOPHEN TAB 325 MG TAB PO PRN (08:29)
[2023-09-20 09:17] LABS: HCT 31.5 % (37.2-46.3); HGB 10.6 g/dL (12.0-15.0); MCH 32.3 pg (27.0-32.0); MCHC 33.7 g/dL (32.0-37.0); Mean Platelet Volume 11.1 FL (9.5-12.2); NRBC Per 100 WBC 0 X 10*3/uL (0.00-0.01); Platelet Count 106 X 10*3/uL (140-440); RBC 3.28 X 10*6/uL (4.10-5.20); RDW 12.7 % (11.5-14.5); WBC 18.09 X 10*3/uL (4.50-10.00)
[2023-09-20 09:23] LABS: Blood Urea Nitrogen 22.2 mg/dL (9.0-27.0); Calcium 7.6 mg/dL (8.7-10.3); Chloride 109 mmol/L (96-109); Glucose 94 mg/dL (70-110); Potassium 3.3 mmol/L (3.5-5.5); Sodium 140 mmol/L (135-145)
[2023-09-20 10:17] LABS: Basophils # (A) 0.03 X 10*3/uL (0.00-0.10); Basophils % (A) 0.2 %; Eosinophils # (A) 0.07 X 10*3/uL (0.04-0.35); Eosinophils % (A) 0.4 %; Lymphocytes # (A) 0.59 X 10*3/uL (0.90-5.00); Lymphocytes % (A) 3.3 %; Monocytes # (A) 1.05 X 10*3/uL (0.20-1.00); Monocytes % (A) 5.8 %; Neutrophils # (A) 15.47 X 10*3/uL (1.80-7.70); Neutrophils % (A) 85.4 %
--- NOTE | 2023-09-20 13:21 | P.HPIM ---
History of Present Illness 53-year-old female came in with left-sided flank pain found to be septic with renal stones about 3 to 4 mm stone patient has significantly abnormal urine patient was septic on admission with fevers of 101.1 and patient received about 3 L of IV normal saline. Patient is going for lithotripsy with a J-tube placement today. Patient is on Rocephin with urine cultures. CT scan showed left-sided hydronephrosis and distal ureteral calculus. REVIEW OF SYSTEMS: CONSTITUTIONAL: No fever, no malaise, no fatigue. HEENT: No recent visual problems or hearing problems. Denied any sore throat. CARDIOVASCULAR: No chest pain, orthopnea, PND, no palpitations, no syncope. PULMONARY: No shortness of breath, no cough, no hemoptysis. GASTROINTESTINAL: No diarrhea, NEUROLOGICAL: No headaches, no weakness, no numbness. HEMATOLOGICAL: Denies any bleeding or petechiae. GENITOURINARY: Patient has left-sided flank pain MUSCULOSKELETAL/RHEUMATOLOGICAL: Denies any joint pain, swelling, or any muscle pain. ENDOCRINE: Denies any polyuria or polydipsia. The rest of the 14-point review of systems is negative. PHYSICAL EXAMINATION: GENERAL: The patient is alert and oriented x3, not in any acute distress. Well developed, well nourished. HEENT: Pupils are round and equally reacting to light. EOMI. No scleral icterus. No conjunctival pallor. Normocephalic, atraumatic. No pharyngeal erythema. No thyromegaly. CARDIOVASCULAR: S1 and S2 present. No murmurs, rubs, or gallops. PULMONARY: Chest is clear to auscultation, no wheezing or crackles. ABDOMEN: Soft, nontender, nondistended, normoactive bowel sounds. No palpable organomegaly. MUSCULOSKELETAL: No joint swelling or deformity. EXTREMITIES: No cyanosis, clubbing, or pedal edema. NEUROLOGICAL: Gross neurological examination did not reveal any focal deficits. SKIN: No rashes. Assessment and plan -Sepsis secondary to urinary tract infection, pyelonephritis from kidney stones patient will undergo lithotripsy with J-tube placement continue with Rocephin. Continue with IV fluids -Acute renal failure secondary to acute tubular necrosis -Leukocytosis secondary to sepsis -Sinus tachycardia secondary to sepsis IV fluids and antibiotics -Nephrolithiasis DVT prophylaxis: Heparin subcutaneous Past Medical History Additional Past Medical History / Comment(s): BACK PAIN History of Any Multi-Drug Resistant Organisms: None Reported Past Surgical History: Back Surgery, Cholecystectomy, Tubal Ligation Additional Past Surgical History / Comment(s): LEFT FOOT SURGERY Past Anesthesia/Blood Transfusion Reactions: No Reported Reaction Past Psychological History: No Psychological Hx Reported Smoking Status: Current every day smoker Past Alcohol Use History: None Reported Past Drug Use History: None Reported - Past Family History Mother Family Medical History: Coronary Artery Disease (CAD) Father Family Medical History: COPD Medications and Allergies Home Medications Medication Instructions Recorded Confirmed Type HYDROcodone/APAP 10-325MG [[place] 1 tab PO TID PRN 05/22/15 09/20/23 History 10-325] Naproxen [Naprosyn] 500 mg PO BID PRN 09/20/23 09/20/23 History Allergies Allergy/AdvReac Type Severity Reaction Status Date / Time lansoprazole [From Prevacid] Allergy Rash/Hives Verified 09/19/23 16:05 povidone-iodine Allergy Rash/Hives Verified 09/19/23 16:05 [From Betadine] soap [From Betadine] Allergy Rash/Hives Verified 09/19/23 16:05 Sulfa (Sulfonamide Allergy Rash/Hives Verified 09/19/23 16:05 Antibiotics) Physical Exam Vitals: Vital Signs Temp Pulse Pulse Pulse Resp BP BP 09/20/23 06:59 98.1 F 87 18 92/59 09/20/23 05:46 97/65 09/20/23 05:29 94/62 09/20/23 05:20 85 99/65 09/20/23 04:59 93 92/60 09/20/23 04:43 90 91/60 09/20/23 04:29 96 14 81/51 09/20/23 04:19 94 75/47 09/20/23 03:59 93 15 87/59 09/20/23 03:30 100 80/51 09/20/23 02:59 102 H 84/55 09/20/23 02:50 106 H 14 79/50 09/20/23 02:34 99.5 F 111 H 14 78/48 09/20/23 02:18 108 H 98/52 09/20/23 02:11 110 H 20 99/54 09/20/23 02:00 110 H 20 97/53 06/02/24 01:45 112 H 20 93/49 09/20/23 01:38 98.7 F 130 H 20 109/58 09/20/23 00:21 101.1 F H 147 H 18 114/70 09/19/23 16:02 98.0 F 108 H 16 95/67 Pulse Ox 09/20/23 06:59 96 09/20/23 05:46 09/20/23 05:29 09/20/23 05:20 09/20/23 04:59 09/20/23 04:43 09/20/23 04:29 96 09/20/23 04:19 09/20/23 03:59 97 09/20/23 03:30 09/20/23 02:59 09/20/23 02:50 93 L 09/20/23 02:34 94 L 09/20/23 02:18 09/20/23 02:11 98 09/20/23 02:00 100 09/20/23 01:45 100 09/20/23 01:38 100 09/20/23 00:21 97 09/19/23 16:02 100 Intake and Output 09/19/23 09/20/23 09/20/23 22:59 06:59 14:59 Intake Total 700 Output Total 300 Balance 400 Intake: IV 700 Output: Urine 300 Estimated Blood Loss 0 Other: # Voids 1 Weight 65.771 kg 65.771 kg Results CBC & Chem 7: 09/20/23 03:45 09/20/23 03:45 Labs: Abnormal Lab Results - Last 24 Hours (Table) 09/19/23 09/19/23 09/19/23 Range/Units 16:28 16:32 20:30 WBC 23.3 H (3.8-10.6) k/uL RBC (4.10-5.20) X 10*6/uL Hgb (12.0-15.0) g/dL Hct (37.2-46.3) % MCH (27.0-32.0) pg Plt Count 138 L (150-450) k/uL Immature Gran # (0.00-0.04) X 10*3/uL Neutrophils # (1.80-7.70) X 10*3/uL Neutrophils # (Manual) 21.20 H (1.3-7.7) k/uL Lymphocytes # (0.90-5.00) X 10*3/uL Lymphocytes # (Manual) 0.93 L (1.0-4.8) k/uL Monocytes # (0.20-1.00) X 10*3/uL Monocytes # (Manual) 1.17 H (0-1.0) k/uL Potassium (3.5-5.5) mmol/L Carbon Dioxide 21 L (22-30) mmol/L Anion Gap (4.00-12.00) mmol/L BUN 22 H (7-17) mg/dL Creatinine 1.28 H (0.52-1.04) mg/dL Est GFR (CKD-EPI) (>=60) Glucose 109 H (74-99) mg/dL Plasma Lactic Acid Amarjit 2.3 H* (0.7-2.0) mmol/L Calcium (8.7-10.3) mg/dL Urine Appearance (Clear) Urine Protein (Negative) Urine Blood (Negative) Urine Nitrite (Negative) Ur Leukocyte Esterase (Negative) Urine RBC (0-5) /hpf Urine WBC (0-5) /hpf Urine WBC Clumps (None) /hpf Ur Squamous Epith Cells (0-4) /hpf Amorphous Sediment (None) /hpf Urine Bacteria (None) /hpf Hyaline Casts (0-2) /lpf Urine Mucus (None) /hpf 09/19/23 09/20/23 09/20/23 Range/Units 21:50 03:45 03:45 WBC 18.09 H (3.8-10.6) k/uL RBC 3.28 L (4.10-5.20) X 10*6/uL Hgb 10.6 L (12.0-15.0) g/dL Hct 31.5 L (37.2-46.3) % MCH 32.3 H (27.0-32.0) pg Plt Count 106 L (150-450) k/uL Immature Gran # 0.88 H (0.00-0.04) X 10*3/uL Neutrophils # 15.47 H (1.80-7.70) X 10*3/uL Neutrophils # (Manual) (1.3-7.7) k/uL Lymphocytes # 0.59 L (0.90-5.00) X 10*3/uL Lymphocytes # (Manual) (1.0-4.8) k/uL Monocytes # 1.05 H (0.20-1.00) X 10*3/uL Monocytes # (Manual) (0-1.0) k/uL Potassium 3.3 L (3.5-5.5) mmol/L Carbon Dioxide 18.0 L (22-30) mmol/L Anion Gap 13.00 H (4.00-12.00) mmol/L BUN (7-17) mg/dL Creatinine (0.52-1.04) mg/dL Est GFR (CKD-EPI) 54 L (>=60) Glucose (74-99) mg/dL Plasma Lactic Acid Amarjit (0.7-2.0) mmol/L Calcium 7.6 L (8.7-10.3) mg/dL Urine Appearance Cloudy H (Clear) Urine Protein 1+ H (Negative) Urine Blood Moderate H (Negative) Urine Nitrite Positive H (Negative) Ur Leukocyte Esterase Large H (Negative) Urine RBC 57 H (0-5) /hpf Urine WBC >182 H (0-5) /hpf Urine WBC Clumps Many H (None) /hpf Ur Squamous Epith Cells 7 H (0-4) /hpf Amorphous Sediment Occasional H (None) /hpf Urine Bacteria Many H (None) /hpf Hyaline Casts 19 H (0-2) /lpf Urine Mucus Few H (None) /hpf Thrombosis Risk Factor Assmnt - Choose All That Apply Any of the Below Risk Factors Present?: Yes Each Factor Represents 1 point: Age 41-60 years, Medical pt on bed rest Other Risk Factors: No Thrombosis Risk Factor Assessment Total Risk Factor Score: 2 Thrombosis Risk Factor Assessment Level: Low Risk
[2023-09-20] MEDS: HYDROcodone/APAP 10-325MG 1 EACH TAB PO PRN (14:16)
[2023-09-20] MEDS: POTASSIUM CHLORIDE ER 20 MEQ TAB.ER PO STA (17:29)
--- NOTE | 2023-09-20 19:28 | P.PN ---
Progress Note - Text Progress Note Date: 09/20/23 Patient is much more comfortable this evening following stent insertion. She is afebrile with stable vital signs. She is interested in returning to [place] as soon as possible. I explained to her that she will likely require hospitalization until her urine culture is complete and we can determine which oral antibiotic to safely discharge her with. She intends to contact her [place] urologist to arrange ureteroscopic removal of her ureteral calculus.
[2023-09-21] MEDS: ONDANSETRON 4 MG/2 ML VIAL IVP PRN (06:53)
--- NOTE | 2023-09-21 09:28 | P.CONS ---
History of Present Illness - Reason for Consult Consult date: 09/20/23 Left renal stone with infection Requesting physician: Alida Kim - Chief Complaint Left flank pain x few days - History of Present Illness Patient is a 53-year-old female with a past medical history significant for chronic back pain current everyday smoker patient presenting to the hospital last evening for evaluation of left-sided flank pain pain started around 1 AM describing it to be sharp moderate to severe in intensity with associated nausea and vomiting without any radiation with the symptoms the patient has been evaluated on presentation to the hospital patient did have a fever of 101.1 F patient was mildly tachycardic but not hypotensive or hypoxic and no need for supplemental oxygen did have a white count of 23,000 with a left shift lactic acids were 2.3 urine has been positive BUN/creatinine mildly elevated liver enzymes are normal patient did have abdominal pelvis CT which did show severe left-sided perinephric edema with moderate hydronephrosis secondary to distal left ureteral calculus patient has been evaluated by urology and the patient is status post cystoscopy and left ureteral stent placement, patient has been empirically treated with Rocephin infectious disease was consulted today for further management of antibiotic therapy Review of Systems Positive point and negatives has been mentioned in the HPI, complete review of systems was performed and all other systems are negative Past Medical History Additional Past Medical History / Comment(s): BACK PAIN History of Any Multi-Drug Resistant Organisms: None Reported Past Surgical History: Back Surgery, Cholecystectomy, Tubal Ligation Additional Past Surgical History / Comment(s): LEFT FOOT SURGERY Past Anesthesia/Blood Transfusion Reactions: No Reported Reaction Past Psychological History: No Psychological Hx Reported Smoking Status: Current every day smoker Past Alcohol Use History: None Reported Past Drug Use History: None Reported - Past Family History Mother Family Medical History: Coronary Artery Disease (CAD) Father Family Medical History: COPD Medications and Allergies Home Medications Medication Instructions Recorded Confirmed Type HYDROcodone/APAP 10-325MG [[place] 1 tab PO TID PRN 05/22/15 09/20/23 History 10-325] Acetaminophen Tab [Tylenol] 650 mg PO Q6HR PRN tab 09/23/23 Rx Ciprofloxacin HCl [Cipro] 500 mg PO Q12HR 12 Days #24 tab 09/23/23 Rx Metoclopramide HCl [Reglan] 5 mg PO Q8H PRN #20 tablet 09/23/23 Rx Allergies Allergy/AdvReac Type Severity Reaction Status Date / Time lansoprazole [From Prevacid] Allergy Rash/Hives Verified 09/19/23 16:05 povidone-iodine Allergy Rash/Hives Verified 09/19/23 16:05 [From Betadine] soap [From Betadine] Allergy Rash/Hives Verified 09/19/23 16:05 Sulfa (Sulfonamide Allergy Rash/Hives Verified 09/19/23 16:05 Antibiotics) Physical Exam Vitals: Vital Signs Temp Pulse Pulse Pulse Resp BP BP 09/20/23 06:59 98.1 F 87 18 92/59 09/20/23 05:46 97/65 09/20/23 05:29 94/62 09/20/23 05:20 85 99/65 09/20/23 04:59 93 92/60 09/20/23 04:43 90 91/60 09/20/23 04:29 96 14 81/51 09/20/23 04:19 94 75/47 09/20/23 03:59 93 15 87/59 09/20/23 03:30 100 80/51 09/20/23 02:59 102 H 84/55 09/20/23 02:50 106 H 14 79/50 09/20/23 02:34 99.5 F 111 H 14 78/48 09/20/23 02:18 108 H 98/52 09/20/23 02:11 110 H 20 99/54 09/20/23 02:00 110 H 20 97/53 09/20/23 01:45 112 H 20 93/49 09/20/23 01:38 98.7 F 130 H 20 109/58 09/20/23 00:21 101.1 F H 147 H 18 114/70 09/19/23 16:02 98.0 F 108 H 16 95/67 Pulse Ox 09/20/23 06:59 96 09/20/23 05:46 09/20/23 05:29 09/20/23 05:20 09/20/23 04:59 09/20/23 04:43 09/20/23 04:29 96 09/20/23 04:19 09/20/23 03:59 97 09/20/23 03:30 09/20/23 02:59 09/20/23 02:50 93 L 09/20/23 02:34 94 L 09/20/23 02:18 09/20/23 02:11 98 09/20/23 02:00 100 09/20/23 01:45 100 09/20/23 01:38 100 09/20/23 00:21 97 09/19/23 16:02 100 Intake and Output 09/19/23 09/20/23 09/20/23 22:59 06:59 14:59 Intake Total 700 Output Total 300 Balance 400 Intake: IV 700 Output: Urine 300 Estimated Blood Loss 0 Other: # Voids 1 Weight 65.771 kg 65.771 kg GENERAL DESCRIPTION: Middle-aged female lying in bed, no distress. No tachypnea or accessory muscle of respiration use. HEENT: Shows Pallor , no scleral icterus. Oral mucous membrane is dry. No pharyngeal erythema or thrush NECK: Trachea central, no thyromegaly. LUNGS: Unlabored breathing. Clear to auscultation anteriorly. No wheeze or crackle. HEART: S1, S2, regular rate and rhythm. No loud murmur ABDOMEN: Soft, no tenderness , guarding or rigidity, no organomegaly EXTREMITIES: No edema of feet. SKIN: No rash, no masses palpable. NEUROLOGICAL: The patient is awake, alert, oriented x3, mood and affect normal. Results CBC & Chem 7: 09/22/23 08:57 09/23/23 03:36 Labs: Abnormal Lab Results - Last 24 Hours (Table) 09/19/23 09/19/23 09/19/23 Range/Units 16:28 16:32 20:30 WBC 23.3 H (3.8-10.6) k/uL RBC (4.10-5.20) X 10*6/uL Hgb (12.0-15.0) g/dL Hct (37.2-46.3) % MCH (27.0-32.0) pg Plt Count 138 L (150-450) k/uL Immature Gran # (0.00-0.04) X 10*3/uL Neutrophils # (1.80-7.70) X 10*3/uL Neutrophils # (Manual) 21.20 H (1.3-7.7) k/uL Lymphocytes # (0.90-5.00) X 10*3/uL Lymphocytes # (Manual) 0.93 L (1.0-4.8) k/uL Monocytes # (0.20-1.00) X 10*3/uL Monocytes # (Manual) 1.17 H (0-1.0) k/uL Potassium (3.5-5.5) mmol/L Carbon Dioxide 21 L (22-30) mmol/L Anion Gap (4.00-12.00) mmol/L BUN 22 H (7-17) mg/dL Creatinine 1.28 H (0.52-1.04) mg/dL Est GFR (CKD-EPI) (>=60) Glucose 109 H (74-99) mg/dL Plasma Lactic Acid Amarjit 2.3 H* (0.7-2.0) mmol/L Calcium (8.7-10.3) mg/dL Urine Appearance (Clear) Urine Protein (Negative) Urine Blood (Negative) Urine Nitrite (Negative) Ur Leukocyte Esterase (Negative) Urine RBC (0-5) /hpf Urine WBC (0-5) /hpf Urine WBC Clumps (None) /hpf Ur Squamous Epith Cells (0-4) /hpf Amorphous Sediment (None) /hpf Urine Bacteria (None) /hpf Hyaline Casts (0-2) /lpf Urine Mucus (None) /hpf 09/19/23 09/20/23 09/20/23 Range/Units 21:50 03:45 03:45 WBC 18.09 H (3.8-10.6) k/uL RBC 3.28 L (4.10-5.20) X 10*6/uL Hgb 10.6 L (12.0-15.0) g/dL Hct 31.5 L (37.2-46.3) % MCH 32.3 H (27.0-32.0) pg Plt Count 106 L (150-450) k/uL Immature Gran # 0.88 H (0.00-0.04) X 10*3/uL Neutrophils # 15.47 H (1.80-7.70) X 10*3/uL Neutrophils # (Manual) (1.3-7.7) k/uL Lymphocytes # 0.59 L (0.90-5.00) X 10*3/uL Lymphocytes # (Manual) (1.0-4.8) k/uL Monocytes # 1.05 H (0.20-1.00) X 10*3/uL Monocytes # (Manual) (0-1.0) k/uL Potassium 3.3 L (3.5-5.5) mmol/L Carbon Dioxide 18.0 L (22-30) mmol/L Anion Gap 13.00 H (4.00-12.00) mmol/L BUN (7-17) mg/dL Creatinine (0.52-1.04) mg/dL Est GFR (CKD-EPI) 54 L (>=60) Glucose (74-99) mg/dL Plasma Lactic Acid Amarjit (0.7-2.0) mmol/L Calcium 7.6 L (8.7-10.3) mg/dL Urine Appearance Cloudy H (Clear) Urine Protein 1+ H (Negative) Urine Blood Moderate H (Negative) Urine Nitrite Positive H (Negative) Ur Leukocyte Esterase Large H (Negative) Urine RBC 57 H (0-5) /hpf Urine WBC >182 H (0-5) /hpf Urine WBC Clumps Many H (None) /hpf Ur Squamous Epith Cells 7 H (0-4) /hpf Amorphous Sediment Occasional H (None) /hpf Urine Bacteria Many H (None) /hpf Hyaline Casts 19 H (0-2) /lpf Urine Mucus Few H (None) /hpf Assessment and Plan (1) Acute pyelonephritis Status: Acute Code(s): N10 - ACUTE PYELONEPHRITIS SNOMED Code(s): 85431515 (2) Allergy to sulfa drugs Status: Acute Code(s): Z88.2 - ALLERGY STATUS TO SULFONAMIDES SNOMED Code(s): 58581065 (3) Left nephrolithiasis Status: Acute Code(s): N20.0 - CALCULUS OF KIDNEY SNOMED Code(s): 00390845 (4) Sepsis Status: Acute Code(s): A41.9 - SEPSIS, UNSPECIFIED ORGANISM SNOMED Code(s): 69982424 Plan: 1patient presented to the hospital with sepsis in this patient who did have fever elevated lactic acid and leukocytosis source is complicated UTI in this patient who is status post cystoscopy and left ureteral stent placement. 2blood and urine culture obtained this morning results will be followed. 3sulfa allergy. 4Rocephin 2 g daily while waiting for the culture to finalize. Question concern answered. We will follow on clinical condition and cultures to further adjust medication if needed Thank you for this consultation we will follow the patient along with you Dictation was produced using [employer] dictation software. please excuse any grammatical, word or spelling errors.
[2023-09-21 10:52] LABS: HCT 32.2 % (37.2-46.3); HGB 10.7 g/dL (12.0-15.0); MCH 32.5 pg (27.0-32.0); MCHC 33.2 g/dL (32.0-37.0); MCV 97.9 FL (80.0-97.0); Mean Platelet Volume 11.5 FL (9.5-12.2); NRBC Per 100 WBC 0 X 10*3/uL (0.00-0.01); Platelet Count 96 X 10*3/uL (140-440); RBC 3.29 X 10*6/uL (4.10-5.20); RDW 13.2 % (11.5-14.5)
[2023-09-21 10:56] LABS: BUN/Creat Ratio 17.73 Ratio (12.00-20.00); Blood Urea Nitrogen 19.5 mg/dL (9.0-27.0); Calcium 8.4 mg/dL (8.7-10.3); Carbon Dioxide 19.3 mmol/L (21.6-31.8); Chloride 113 mmol/L (96-109); Glucose 93 mg/dL (70-110); Sodium 141 mmol/L (135-145)
[2023-09-21] MEDS: METOCLOPRAMIDE 5 MG/ML 2 ML VIAL IVP STA (11:47)
[2023-09-21] MEDS: HYDROmorphone 1 MG/ML 1 ML SYRINGE IVP STA (11:51)
--- NOTE | 2023-09-21 16:28 | P.PN ---
Subjective Progress Note Date: 09/21/23 Patient did have a fever of 101.3 last night, she is afebrile this morning. Is complaining of bladder spasms and flank pain. Urine cultures growing gram- negative bacilli Objective - Vital Signs Vital signs: Vital Signs Temp 98.1 F 09/21/23 07:17 Pulse 101 H 09/21/23 07:25 Resp 18 09/21/23 07:25 BP 147/81 09/21/23 07:17 Pulse Ox 94 L 09/21/23 07:17 FiO2 Intake & Output 09/20/23 09/21/23 09/21/23 18:59 06:59 18:59 Intake Total 1560 Balance 1560 Intake: Intake, IV Titration 1560 Amount Sodium Chloride 0.9% 1, 1560 000 ml @ 130 mls/hr IV . Q7H42M [facility] Rx#:[id number] Other: Voiding Method Toilet Toilet Toilet # Voids 2 2 - Constitutional General appearance: Present: no acute distress - Gastrointestinal General gastrointestinal: Present: soft. Absent: distended, tenderness - Labs CBC & Chem 7: 09/21/23 06:42 09/21/23 06:42 Labs: Abnormal Lab Results - Last 24 Hours (Table) 09/21/23 09/21/23 Range/Units 06:42 06:42 WBC 12.30 H (4.50-10.00) X 10*3/uL RBC 3.29 L (4.10-5.20) X 10*6/uL Hgb 10.7 L (12.0-15.0) g/dL Hct 32.2 L (37.2-46.3) % MCV 97.9 H (80.0-97.0) FL MCH 32.5 H (27.0-32.0) pg Plt Count 96 L (140-440) X 10*3/uL Chloride 113 H (96-109) mmol/L Carbon Dioxide 19.3 L (21.6-31.8) mmol/L Calcium 8.4 L (8.7-10.3) mg/dL Microbiology - Last 24 Hours (Table) 09/20/23 00:56 Blood Culture - Preliminary Blood 09/20/23 00:40 Blood Culture - Preliminary Blood 09/19/23 13:25 Urine Culture - Preliminary Urine,Voided Gram Neg Bacilli Assessment and Plan Assessment: 53-year-old female status post left stent insertion by Dr. Nur on September 19. Urine cultures growing gram-negative bacilli, she did have a fever 101.3 last night -Recommend keeping in the hospital until she is afebrile for 24-hour, and culture is finalized to discharge on appropriate antibiotics -She lives in [place] and would like to follow-up with a urologist in [place] to address her stone as an outpatien -Given flank pain, will start Toradol patient current pain regimen t
[2023-09-21] MEDS: HYDROcodone/APAP 10-325MG 1 EACH TAB PO PRN (17:09)
[2023-09-21] MEDS: KETOROLAC 15 MG/ML 1 ML VIAL IVP SCH (17:10)
[2023-09-21] MEDS: FUROSEMIDE 10 MG/ML 4 ML VIAL IV STA (19:49)
--- NOTE | 2023-09-21 19:56 | XR ---
EXAMINATION TYPE: XR chest 1V portable DATE OF EXAM: 09/21/2023 7:34 PM CLINICAL INDICATION:Female, 53 years old with history of wheezing; [facility] COMPARISON: Chest radiographs from TECHNIQUE: XR chest 1V portable Frontal view of the chest. FINDINGS: Lungs/Pleura: Blunting of the right costophrenic angle. There is no evidence of focal consolidation, or pneumothorax. Pulmonary vascularity: Unremarkable. Heart/mediastinum: Cardiomediastinal silhouette is unremarkable. Musculoskeletal: No acute osseous pathology. Other findings: None IMPRESSION: 1. Low lung volumes with a generalized hazy appearance which could represent atelectasis versus pulm onary edema correlate with serum BNP. There may be a trace right pleural effusion present.
--- NOTE | 2023-09-22 05:44 | P.PN ---
Subjective Progress Note Date: 09/21/23 53-year-old female came in with left-sided flank pain found to be septic with renal stones about 3 to 4 mm stone patient has significantly abnormal urine patient was septic on admission with fevers of 101.1 and patient received about 3 L of IV normal saline. Patient is going for lithotripsy with a J-tube placement today. Patient is on Rocephin with urine cultures. CT scan showed left-sided hydronephrosis and distal ureteral calculus. 09/21/2023 Patient seen in follow-up today with urology and infectious disease following. Patient is maintained on antibiotics in the form of ceftriaxone while waiting for cultures to finalize. Preliminary culture showing gram-negative bacilli. Patient is status post stent placement with urology following and reports will be following up with urologist in [place] where she lives. Patient continues to have intermittent fevers with increased nausea and intense pain 01/27 and Toradol being added. Will continue with Zofran as well as Tylenol. Encourage small frequent meals. Encouraged increase activity as tolerated. Review of systems: Constitutional: No reports of fatigue, fever, or chills Cardiovascular: No reports of chest pain or palpitations Respiratory: reports of shortness of breath, no cough GI: reports of nausea, no vomiting, or diarrhea : No reports of dysuria or retention Neurovascular: reports of generalized weakness All medications have been reviewed PHYSICAL EXAMINATION: GENERAL: The patient is alert and oriented x3, febrile on exam, nauseated ill- appearing. Well developed, well nourished. HEENT: Pupils are round and equally reacting to light. EOMI. No scleral icterus. No conjunctival pallor. Normocephalic, atraumatic. No pharyngeal erythema. No thyromegaly. CARDIOVASCULAR: S1 and S2 present. No murmurs, rubs, or gallops. PULMONARY: Diminished breath sounds bilaterally otherwise chest is clear to auscultation, no wheezing or crackles. ABDOMEN: Soft, tender, non-distended, normoactive bowel sounds. No palpable organomegaly. MUSCULOSKELETAL: No joint swelling or deformity. EXTREMITIES: No cyanosis, clubbing, or pedal edema. NEUROLOGICAL: Gross neurological examination did not reveal any focal deficits. SKIN: No rashes. Assessment: -Sepsis secondary to urinary tract infection, pyelonephritis from kidney stones status post left stent placement -Acute renal failure secondary to acute tubular necrosis, improving secondary to above -Leukocytosis secondary to sepsis, present on admission, improving -Sinus tachycardia secondary to sepsis, continue IV fluids and antibiotics -Nephrolithiasis -GI prophylaxis -DVT prophylaxis: Heparin subcutaneous -Full code Plan: Patient is being followed by urology status post stent placement and will continue on antibiotics with infectious disease following Preliminary culture showing gram-negative bacilli and patient is maintained on ceftriaxone. Will await finalized cultures to determine discharge antibiotics Patient remains febrile as well as nauseated with severe pain related to antinausea medication, monitor for fevers and Toradol being added. Patient chronically takes [place] tens outpatient and will resume. Follow-up on repeat labs and replace electrolytes per protocol Encouraged to increase activity as tolerated Per urology patient will be following up in the outpatient setting in [place] where she lives with a urologist The impression and plan of care has been dictated by Isis Castrejon, Nurse Practitioner as directed. Dr. Chelita MD I have performed a history and examination and MDM of this patient, discussed the same with the dictator, and agree with the dictator's assessment and plan as written ,documented as a scribe. Based on total visit time, I have performed more than 50% of the visit. Objective - Vital Signs Vital signs: Vital Signs Temp 98.1 F 09/21/23 07:17 Pulse 101 H 09/21/23 07:17 Resp 18 09/21/23 07:17 BP 147/81 09/21/23 07:17 Pulse Ox 94 L 09/21/23 07:17 FiO2 Intake & Output 09/20/23 09/21/23 09/21/23 18:59 06:59 18:59 Intake Total 1560 Balance 1560 Intake: Intake, IV Titration 1560 Amount Sodium Chloride 0.9% 1, 1560 000 ml @ 130 mls/hr IV . Q7H42M [facility] Rx#:[id number] Other: Voiding Method Toilet Toilet # Voids 2 2 - Labs CBC & Chem 7: 09/21/23 06:42 09/21/23 06:42 Labs: Abnormal Lab Results - Last 24 Hours (Table) 09/21/23 09/21/23 Range/Units 06:42 06:42 WBC 12.30 H (4.50-10.00) X 10*3/uL RBC 3.29 L (4.10-5.20) X 10*6/uL Hgb 10.7 L (12.0-15.0) g/dL Hct 32.2 L (37.2-46.3) % MCV 97.9 H (80.0-97.0) FL MCH 32.5 H (27.0-32.0) pg Plt Count 96 L (140-440) X 10*3/uL Chloride 113 H (96-109) mmol/L Carbon Dioxide 19.3 L (21.6-31.8) mmol/L Calcium 8.4 L (8.7-10.3) mg/dL Microbiology - Last 24 Hours (Table) 09/19/23 13:25 Urine Culture - Preliminary Urine,Voided Gram Neg Bacilli
[2023-09-22 09:45] LABS: ALT 30 U/L (4-34); AST 25 U/L (14-36); African American GFR (CKD) 59 (>60 ml/min/1.73 sqM); Albumin 2.8 g/dL (3.5-5.0); Albumin/Globulin Ratio 1.1; Alkaline Phosphatase 90 U/L (38-126); Anion Gap 4 mmol/L; Blood Urea Nitrogen 19 mg/dL (7-17); Calcium 8.4 mg/dL (8.4-10.2); Carbon Dioxide 25 mmol/L (22-30); Chloride 109 mmol/L (98-107); Globulin 2.6 g/dL; Glucose 93 mg/dL (74-99); Magnesium 1.6 mg/dL (1.6-2.3); Non-African American GFR(CKD) 52 (>60 ml/min/1.73 sqM); Potassium 3.7 mmol/L (3.5-5.1); Sodium 138 mmol/L (137-145); Total Bilirubin 0.6 mg/dL (0.2-1.3); Total Protein 5.4 g/dL (6.3-8.2)
[2023-09-22 10:25] LABS: HCT 34.5 % (34.0-46.0); HGB 11.3 gm/dL (11.4-16.0); MCH 32.2 pg (25.0-35.0); MCHC 32.7 g/dL (31.0-37.0); MCV 98.5 fL (80.0-100.0); Mean Platelet Volume 8.9; Platelet Count 126 k/uL (150-450); RDW 12.9 % (11.5-15.5); WBC 9.1 k/uL (3.8-10.6)
--- NOTE | 2023-09-22 12:22 | P.PN ---
Subjective Progress Note Date: 09/22/23 No acute overnight event, flank pain has improved. Urine cultures growing gram- negative bacilli Objective - Vital Signs Vital signs: Vital Signs Temp 98.2 F 09/22/23 07:19 Pulse 93 09/22/23 07:40 Resp 18 09/22/23 07:19 BP 123/82 09/22/23 07:19 Pulse Ox 95 09/22/23 07:19 FiO2 Intake & Output 09/21/23 09/22/23 09/22/23 18:59 06:59 18:59 Other: Voiding Method Toilet Toilet Toilet # Voids 1 6 - Constitutional General appearance: Present: no acute distress - Gastrointestinal General gastrointestinal: Present: soft. Absent: distended, tenderness - Labs CBC & Chem 7: 09/22/23 08:57 09/22/23 08:57 Labs: Abnormal Lab Results - Last 24 Hours (Table) 09/22/23 09/22/23 Range/Units 08:57 08:57 RBC 3.50 L (3.80-5.40) m/uL Hgb 11.3 L (11.4-16.0) gm/dL Plt Count 126 L (150-450) k/uL Chloride 109 H (98-107) mmol/L BUN 19 H (7-17) mg/dL Creatinine 1.21 H (0.52-1.04) mg/dL Total Protein 5.4 L (6.3-8.2) g/dL Albumin 2.8 L (3.5-5.0) g/dL Microbiology - Last 24 Hours (Table) 09/20/23 00:56 Blood Culture - Preliminary Blood 09/20/23 00:40 Blood Culture - Preliminary Blood 09/19/23 13:25 Urine Culture - Preliminary Urine,Voided Gram Neg Bacilli Assessment and Plan Assessment: 53-year-old female status post left stent insertion by Dr. Nur on September 19. Urine cultures growing gram-negative bacilli, -Recommend keeping in the hospital until she is afebrile for 24-hour, and cultur e is finalized to discharge on appropriate antibiotics -She lives in [place] and would like to follow-up with a urologist in [place] to address her stone as an outpatient. I have reemphasized with her that stent cannot stay past 3 months otherwise she is at risk of stent encrustation
[2023-09-22 13:27] LABS: Lymphocytes # (M) 1.37 k/uL (1.0-4.8); Monocytes # (M) 0.18 k/uL (0-1.0); Neutrophils # (M) 7.55 k/uL (1.3-7.7); Neutrophils % (M) 83 %; Nucleated Red Blood Cells 0 /100 WBC (0-0); Total Cells Counted 100
--- NOTE | 2023-09-22 14:04 | US ---
EXAMINATION TYPE: US venous doppler duplex UE RT DATE OF EXAM: 09/22/2023 COMPARISON: NONE CLINICAL INDICATION: Female, 53 years old with history of right arm swelling rule out DVT; No swellin g or redness. On IV heparin. SIDE PERFORMED: Right TECHNIQUE: Grayscale, color doppler, spectral doppler imaging performed of the deep veins of the upp er extremities. FINDINGS: There is normal flow, compressibility and vascular waveforms. Right Arm: Negative for DVT IMPRESSION: No evidence for DVT right upper extremity.
--- NOTE | 2023-09-22 14:59 | P.PN ---
Subjective Progress Note Date: 09/21/23 Principal diagnosis: Reason for follow-up is complicated UTI/pyelonephritis Patient is a 53-year-old female with a past medical history significant for chronic back pain current everyday smoker patient presenting to the hospital with left flank pain patient has been diagnosed with sepsis secondary complicated UTI in this patient who status post left ureteral stent pl acement. On today's evaluation that is 09/21/2023,the patient did have fever of 101.4 F last night however denies any fever or any chills, patient is breathing comfortably on room air, the patient denies chest pain shortness of breath and no significant cough, patient denies abdominal pain, no nausea vomiting or diarrhea. Patient white count is down to 12.30, creatinine 1.1 cultures currently pending Objective - Vital Signs Vital signs: Vital Signs Temp 98.9 F 09/21/23 19:51 Pulse 91 09/21/23 19:51 Resp 18 09/21/23 19:51 BP 124/77 09/21/23 19:51 Pulse Ox 91 L 09/21/23 19:51 FiO2 Intake & Output 09/21/23 09/21/23 09/22/23 06:59 18:59 06:59 Intake Total 1560 Balance 1560 Intake: Intake, IV Titration 1560 Amount Sodium Chloride 0.9% 1, 1560 000 ml @ 130 mls/hr IV . Q7H42M [facility] Rx#:[id number] Other: Voiding Method Toilet Toilet # Voids 2 1 - Exam GENERAL DESCRIPTION: Middle-aged female lying in bed in no distress RESPIRATORY SYSTEM: Unlabored breathing , decreased breath sounds at bases HEART: S1 S2 regular rate and rhythm , ABDOMEN: Soft , no tenderness EXTREMITIES: No edema feet - Labs CBC & Chem 7: 09/22/23 08:57 09/22/23 08:57 Labs: Abnormal Lab Results - Last 24 Hours (Table) 09/21/23 09/21/23 Range/Units 06:42 06:42 WBC 12.30 H (4.50-10.00) X 10*3/uL RBC 3.29 L (4.10-5.20) X 10*6/uL Hgb 10.7 L (12.0-15.0) g/dL Hct 32.2 L (37.2-46.3) % MCV 97.9 H (80.0-97.0) FL MCH 32.5 H (27.0-32.0) pg Plt Count 96 L (140-440) X 10*3/uL Chloride 113 H (96-109) mmol/L Carbon Dioxide 19.3 L (21.6-31.8) mmol/L Calcium 8.4 L (8.7-10.3) mg/dL Microbiology - Last 24 Hours (Table) 09/20/23 00:56 Blood Culture - Preliminary Blood 09/20/23 00:40 Blood Culture - Preliminary Blood 09/19/23 13:25 Urine Culture - Preliminary Urine,Voided Gram Neg Bacilli Assessment and Plan (1) Allergy to sulfa drugs Current Visit: Yes Status: Acute Code(s): Z88.2 - ALLERGY STATUS TO SULFONAMIDES SNOMED Code(s): 48004428 (2) Leukocytosis Current Visit: Yes Status: Acute Code(s): D72.829 - ELEVATED WHITE BLOOD CELL COUNT, UNSPECIFIED SNOMED Code(s): 116050959 (3) Acute pyelonephritis Current Visit: Yes Status: Acute Code(s): N10 - ACUTE PYELONEPHRITIS SNOMED Code(s): 08495358 Plan: 1patient presented to the hospital with sepsis in this patient who did have fever elevated lactic acid and leukocytosis source is complicated UTI in this patient who is status post cystoscopy and left ureteral stent placement. 2blood and urine culture obtained this morning results will be followed. 3sulfa allergy. 4patient to continue with Rocephin 2 g daily while waiting for the culture to finalize and monitor clinical course closely Dictation was produced using [employer] dictation software. please excuse any grammatical, word or spelling errors. Time with Patient: Less than 30
--- NOTE | 2023-09-22 15:00 | P.PN ---
Subjective Progress Note Date: 09/22/23 Principal diagnosis: Reason for follow-up is complicated UTI/pyelonephritis Patient is a 53-year-old female with a past medical history significant for chronic back pain current everyday smoker patient presenting to the hospital with left flank pain patient has been diagnosed with sepsis secondary complicated UTI in this patient who status post left ureteral stent pl acement. On today's evaluation that is 09/22/2023,the patient did have low-grade fever on today for night after midnight, however remains to be afebrile, patient is on room air not requiring supplemental oxygen and denies any shortness of breath no chest pain or cough.Patient left flank pain has improved some nausea but no vomiting and no diarrhea. Patient white count normalized to 9.1, creatinine is 1.21 Objective - Vital Signs Vital signs: Vital Signs Temp 98.2 F 09/22/23 07:19 Pulse 93 09/22/23 07:40 Resp 18 09/22/23 07:19 BP 123/82 09/22/23 07:19 Pulse Ox 95 09/22/23 07:19 FiO2 Intake & Output 09/21/23 09/22/23 09/22/23 18:59 06:59 18:59 Other: Voiding Method Toilet Toilet Toilet # Voids 1 6 - Exam GENERAL DESCRIPTION: Middle-aged female lying in bed in no distress RESPIRATORY SYSTEM: Unlabored breathing , decreased breath sounds at bases HEART: S1 S2 regular rate and rhythm , ABDOMEN: Soft , no tenderness EXTREMITIES: No edema feet - Labs CBC & Chem 7: 09/22/23 08:57 09/22/23 08:57 Labs: Abnormal Lab Results - Last 24 Hours (Table) 09/22/23 09/22/23 Range/Units 08:57 08:57 RBC 3.50 L (3.80-5.40) m/uL Hgb 11.3 L (11.4-16.0) gm/dL Plt Count 126 L (150-450) k/uL Chloride 109 H (98-107) mmol/L BUN 19 H (7-17) mg/dL Creatinine 1.21 H (0.52-1.04) mg/dL Total Protein 5.4 L (6.3-8.2) g/dL Albumin 2.8 L (3.5-5.0) g/dL Microbiology - Last 24 Hours (Table) 09/20/23 00:56 Blood Culture - Preliminary Blood 09/20/23 00:40 Blood Culture - Preliminary Blood 09/19/23 13:25 Urine Culture - Preliminary Urine,Voided Gram Neg Bacilli Assessment and Plan (1) Left nephrolithiasis Current Visit: Yes Status: Acute Code(s): N20.0 - CALCULUS OF KIDNEY SNOMED Code(s): 24079360 (2) Leukocytosis Current Visit: Yes Status: Acute Code(s): D72.829 - ELEVATED WHITE BLOOD CELL COUNT, UNSPECIFIED SNOMED Code(s): 088251213 Plan: 1patient presented to the hospital with sepsis in this patient who did have fever elevated lactic acid and leukocytosis source is complicated UTI in this patient who is status post cystoscopy and left ureteral stent placement. 2blood culture has been negative urine is growing E. coli sensitive to ceftriaxone 3sulfa allergy. 4patient to continue with Rocephin 2 g daily for another day to make sure the patient is afebrile for 24 hours and monitor her creatinine closely as is slightly gone up today this was discussed with RIGGING WORKER for admitting team Dictation was produced using [employer] dictation software. please excuse any grammatical, word or spelling errors. Time with Patient: Less than 30
[2023-09-23 02:26] VITALS: RESP 18
[2023-09-23] MEDS ORDERED: Magnesium Replacement Protocol 1 EACH MISC MISCELLANE PRN (03:32)
[2023-09-23] MEDS: MAGNESIUM SULFATE-D5W PMX 1 GM in DEXTROSE/WATER 1 100ML.BAG IVPB ONE (03:44)
[2023-09-23] MEDS: METOCLOPRAMIDE 5 MG/ML 2 ML VIAL IVP PRN (04:06)
--- NOTE | 2023-09-23 06:51 | P.PN ---
Subjective Progress Note Date: 09/22/23 53-year-old female came in with left-sided flank pain found to be septic with renal stones about 3 to 4 mm stone patient has significantly abnormal urine patient was septic on admission with fevers of 101.1 and patient received about 3 L of IV normal saline. Patient is going for lithotripsy with a J-tube placement today. Patient is on Rocephin with urine cultures. CT scan showed left-sided hydronephrosis and distal ureteral calculus. 09/21/2023 Patient seen in follow-up today with urology and infectious disease following. Patient is maintained on antibiotics in the form of ceftriaxone while waiting for cultures to finalize. Preliminary culture showing gram-negative bacilli. Patient is status post stent placement with urology following and reports will be following up with urologist in [place] where she lives. Patient continues to have intermittent fevers with increased nausea and intense pain 01/27 and Toradol being added. Will continue with Zofran as well as Tylenol. Encourage small frequent meals. Encouraged increase activity as tolerated. 09/22/2023 Patient is seen and evaluated in follow-up today Review of systems: Constitutional: No reports of fatigue, fever, or chills Cardiovascular: No reports of chest pain or palpitations Respiratory: reports of shortness of breath, no cough GI: reports of nausea, no vomiting, or diarrhea : No reports of dysuria or retention Neurovascular: reports of generalized weakness All medications have been reviewed PHYSICAL EXAMINATION: GENERAL: The patient is alert and oriented x3, febrile on exam, nauseated ill- appearing. Well developed, well nourished. HEENT: Pupils are round and equally reacting to light. EOMI. No scleral icterus. No conjunctival pallor. Normocephalic, atraumatic. No pharyngeal erythema. No thyromegaly. CARDIOVASCULAR: S1 and S2 present. No murmurs, rubs, or gallops. PULMONARY: Diminished breath sounds bilaterally otherwise chest is clear to auscultation, no wheezing or crackles. ABDOMEN: Soft, tender, non-distended, normoactive bowel sounds. No palpable organomegaly. MUSCULOSKELETAL: No joint swelling or deformity. EXTREMITIES: No cyanosis, clubbing, or pedal edema. NEUROLOGICAL: Gross neurological examination did not reveal any focal deficits. SKIN: No rashes. Assessment: -Sepsis secondary to urinary tract infection, pyelonephritis from kidney stones status post left stent placement, culture showing E. coli -Acute renal failure secondary to acute tubular necrosis, improving secondary to above -Leukocytosis secondary to sepsis, present on admission, improving -Sinus tachycardia secondary to sepsis, continue IV fluids and antibiotics -Nephrolithiasis -GI prophylaxis -DVT prophylaxis: Heparin subcutaneous -Full code Plan: Patient is being followed by urology status post stent placement and will continue on antibiotics with infectious disease following Finalized cultures show E. coli and patient is maintained on ceftriaxone. Will discuss with ID about discharge antibiotics Patient remains febrile as well as nauseated occasionally, reports improvement in pain, continue Toradol . Patient chronically takes [facility] outpatient and will resume. Follow-up on repeat labs and replace electrolytes per protocol. Kidney function slightly worsened today and will follow-up with repeat labs Encouraged to increase activity as tolerated Per urology patient will be following up in the outpatient setting in [place] where she lives with a urologist Patient reports she wants to go home although awaiting ID recommendations for discharge antibiotics. Patient lives in [place] and wants to follow-up with her charts urologist there The impression and plan of care has been dictated by Isis Castrejon, Nurse Practitioner as directed. Dr. Chelita MD I have performed a history and examination and MDM of this patient, discussed the same with the dictator, and agree with the dictator's assessment and plan as written ,documented as a scribe. Based on total visit time, I have performed more than 50% of the visit. Objective - Vital Signs Vital signs: Vital Signs Temp 100 F H 09/22/23 01:09 Pulse 93 09/22/23 01:09 Resp 18 09/22/23 01:09 BP 136/87 09/22/23 01:09 Pulse Ox 97 09/22/23 01:09 FiO2 Intake & Output 09/21/23 09/21/23 09/22/23 06:59 18:59 06:59 Intake Total 1560 Balance 1560 Intake: Intake, IV Titration 1560 Amount Sodium Chloride 0.9% 1, 1560 000 ml @ 130 mls/hr IV . [id number] [facility] Rx#:[id number] Other: Voiding Method Toilet Toilet Toilet # Voids 2 1 - Labs CBC & Chem 7: 09/22/23 08:57 09/22/23 08:57 Labs: Abnormal Lab Results - Last 24 Hours (Table) 09/21/23 09/21/23 Range/Units 06:42 06:42 WBC 12.30 H (4.50-10.00) X 10*3/uL RBC 3.29 L (4.10-5.20) X 10*6/uL Hgb 10.7 L (12.0-15.0) g/dL Hct 32.2 L (37.2-46.3) % MCV 97.9 H (80.0-97.0) FL MCH 32.5 H (27.0-32.0) pg Plt Count 96 L (140-440) X 10*3/uL Chloride 113 H (96-109) mmol/L Carbon Dioxide 19.3 L (21.6-31.8) mmol/L Calcium 8.4 L (8.7-10.3) mg/dL Microbiology - Last 24 Hours (Table) 09/20/23 00:56 Blood Culture - Preliminary Blood 09/20/23 00:40 Blood Culture - Preliminary Blood 09/19/23 13:25 Urine Culture - Preliminary Urine,Voided Gram Neg Bacilli
[2023-09-23 07:21] VITALS: BP 137/94; PULSE 93; TEMP 98.6
[2023-09-23 08:52] LABS: BUN/Creat Ratio 14.25 Ratio (12.00-20.00); Blood Urea Nitrogen 17.1 mg/dL (9.0-27.0); Calcium 8.1 mg/dL (8.7-10.3); Carbon Dioxide 23.6 mmol/L (21.6-31.8); Chloride 107 mmol/L (96-109); Glucose 93 mg/dL (70-110); Potassium 3.7 mmol/L (3.5-5.5); Sodium 141 mmol/L (135-145)
--- NOTE | 2023-09-24 14:39 | P.PN ---
Subjective Progress Note Date: 09/23/23 Principal diagnosis: Reason for follow-up is complicated UTI/pyelonephritis Patient is a 53-year-old female with a past medical history significant for chronic back pain current everyday smoker patient presenting to the hospital with left flank pain patient has been diagnosed with sepsis secondary complicated UTI in this patient who status post left ureteral stent pl acement. On today's evaluation that is 09/23/2023, the patient continues to be afebrile, the patient is on room air and breathing comfortably, the Pt denies having any chest pain or cough, the patient denies having any abdominal pain no vomiting or any diarrhea has been reported by the nursing staff, patient mention feeling better wants to go home. Patient white count was 9.1 normal as of yesterday creatinine is 1.2 blood culture with E. coli Objective - Vital Signs Vital signs: Vital Signs Temp 98.6 F 09/23/23 07:21 Pulse 93 09/23/23 07:21 Resp 18 09/23/23 07:21 BP 137/94 09/23/23 07:21 Pulse Ox 93 L 09/23/23 07:21 FiO2 Intake & Output 09/22/23 09/23/23 09/23/23 18:59 06:59 18:59 Other: Voiding Method Toilet Toilet # Voids 3 2 - Exam GENERAL DESCRIPTION: Middle-aged female lying in bed in no distress RESPIRATORY SYSTEM: Unlabored breathing , decreased breath sounds at bases HEART: S1 S2 regular rate and rhythm , ABDOMEN: Soft , no tenderness EXTREMITIES: No edema feet - Labs CBC & Chem 7: 09/22/23 08:57 09/23/23 03:36 Labs: Abnormal Lab Results - Last 24 Hours (Table) 09/23/23 Range/Units 03:36 Est GFR (CKD-EPI) 54 L (>=60) Calcium 8.1 L (8.7-10.3) mg/dL Microbiology - Last 24 Hours (Table) 09/20/23 00:56 Blood Culture Gram Stain - Preliminary Blood Blood Culture - Preliminary Molecular ID 09/19/23 13:25 Urine Culture - Final Urine,Voided Escherichia coli 09/20/23 00:40 Blood Culture - Preliminary Blood Assessment and Plan (1) Left nephrolithiasis Status: Acute Code(s): N20.0 - CALCULUS OF KIDNEY SNOMED Code(s): 56015261 (2) Leukocytosis Status: Acute Code(s): D72.829 - ELEVATED WHITE BLOOD CELL COUNT, UNSPECIFIED SNOMED Code(s): 042058942 Plan: 1patient presented to the hospital with sepsis in this patient who did have fever elevated lactic acid and leukocytosis source is complicated UTI in this patient who is status post cystoscopy and left ureteral stent placement. 2blood culture has been negative urine is growing E. coli sensitive to ceftriaxone 3sulfa allergy. 4patient with E. coli bacteremia source is likely complicated UTI. 5patient is feeling better wants to go home we will consider 12-day course of oral Cipro on discharge prescription sent to pharmacy also advised to follow-up with her physician on arrival at her home in [place] Dictation was produced using [employer] dictation software. please excuse any grammatical, word or spelling errors. Time with Patient: Less than 30
== END 2023-09-23 15:23 | disposition home or self-care (01) | DRG 853 ==
LOC: EC 16:00 → 4SSUR 09-20 00:20
PROVIDERS: ADMIT Internal Medicine; ATTEND Internal Medicine
PROC: 0T778DZ Dilation of Left Ureter with Intraluminal Device, Via Natural or Artificial Opening Endoscopic (ICD-10-PCS; principal; 2023-09-20 00:46)
PROC: BT1F1ZZ Fluoroscopy of Left Kidney, Ureter and Bladder using Low Osmolar Contrast (ICD-10-PCS; principal; 2023-09-20 00:46)
DX: A41.51 Sepsis due to Escherichia coli [E. coli] (principal); N17.0 Acute kidney failure with tubular necrosis; N13.6 Pyonephrosis; E87.20 Acidosis, unspecified; N20.2 Calculus of kidney with calculus of ureter; R65.20 Severe sepsis without septic shock; N32.89 Other specified disorders of bladder; F17.200 Nicotine dependence, unspecified, uncomplicated; G89.29 Other chronic pain; M54.9 Dorsalgia, unspecified; Z28.310 Unvaccinated for COVID-19; Z88.2 Allergy status to sulfonamides; Z88.8 Allergy status to other drugs, medicaments and biological substances; Z87.442 Personal history of urinary calculi
CPT/HCPCS: 36415; 71045; 74176; 74420; 74430; 80048; 80053; 81001; 82150; 83605; 83690; 83735; 85025; 85027; 87040; 87077; 87086; 87186; 96361; 96365; 96375; 99291